=== PATIENT | female | born 1940 | race African-American/Black ===

== ENCOUNTER 2022-03-20 02:07 | Day surgery (SDC) | payer MEDICARE, SELFPAY ==
[2022-02-14 12:10] VITALS: BMI 29.5
--- NOTE | 2022-03-20 07:59 | P.PNAN_ITS ---
Anes - Initial Pre Proc Eval Procedure: Operation Date: 03/20/22 09:00 Proposed Procedures p Colonoscopy - Gabe Duenas MD Date/Time: 03/20/22 07:59 Surgeon: Gabe Duenas MD Pre Op Diagnosis: change in bowel habits Patient Data Age: 81 Gender: F Height: 1.71 m Weight: 87 kg Allergies Allergy/AdvReac Type Severity Reaction Status Date / Time No Known Allergies Allergy Unverified 03/20/22 08:14 Home Medications Medication Instructions Recorded Confirmed Type atorvastatin 80 mg tablet 80 mg PO DAILY 11/08/21 02/14/22 History citalopram 20 mg tablet 20 mg PO DAILY 11/08/21 02/14/22 History clopidogrel 75 mg tablet 75 mg PO DAILY 11/08/21 03/20/22 History glipizide 10 mg tablet 10 mg PO BID 11/08/21 02/14/22 History metformin 1,000 mg tablet 1,000 mg PO BID 11/08/21 02/14/22 History metoprolol succinate 100 mg 100 mg PO DAILY 11/08/21 02/14/22 History capsule sprinkle, ext. release 24 hr sitagliptin 100 mg tablet (Januvia) 100 mg PO DAILY 11/08/21 02/14/22 History aspirin 325 mg tablet 325 mg PO DAILY 02/14/22 02/14/22 History diclofenac sodium 75 mg 75 mg PO DAILY 02/14/22 02/14/22 History tablet,delayed release olmesartan 40 mg tablet 40 mg PO DAILY 02/14/22 02/14/22 History Patient hx anesthesia problems: none Family hx anesthesia problems: none Results Review: All pre-operative results and documents have been reviewed as part of the pre- operative evaluation. [facility] Past Medical History Medical History (Updated 03/20/22 @ 08:01 by Arley Nunez MD) Arthritis Depression Diabetes HTN (hypertension) Hyperlipidemia Overweight (BMI 25.0-29.9) Peripheral neuropathy Stroke left side weakness Social History Social History (Updated 11/08/21 @ 09:50 by Gretta Swanson CMA) Smoking status: Never smoker Alcohol intake: former Substance use: never Substance use type: does not use Spiritual care concerns: No Anes - Eval Final PreProcedure Day of Procedure 03/20/22 07:59 Patient weight: overweight Heart: regular rate and rhythm Lungs: clear to auscultation and normal air movement Airway: Mallampati scale class II Neurological: alert and oriented Last oral intake: >/= 8 hours ASA classification: III Emergent: no Anesthetic plan: proceed Anesthesia type and monitoring: general GIVS Results Review: All pre-operative results and documents have been reviewed as part of the pre- operative evaluation. Informed Consent: The patient's anesthetic plan and its attendant risks and benefits were discussed with the patient/family/POA. Questions were solicited and answers provided to the satisfaction of the patient/family/POA.
[2022-03-20 08:17] VITALS: BP 161/78; PULSE 72; RESP 18; TEMP 36.4; O2SAT 100
[2022-03-20 08:17] LABS: Glucose Point of Care 92 mg/dl (65-105)
[2022-03-20] MEDS: LACTATED RINGERS 1,000 ML 150 ML IV CONT (08:28)
--- NOTE | 2022-03-20 08:47 | PM.HPGS ---
History of Present Illness History of Present Illness Consent: Risks, benefits, and alternatives have been discussed and questions answered. Patient agrees to proceed with procedure. Chief complaint: change in bowel habits Narrative: Samantha Arellano is a 81 year old female with stool incontinence, fiber did not help. Last colonoscopy 2017. Review of Systems Constitutional: Constitutional: Denies headache(s) and Denies weakness Eyes: Eyes: Denies blurry vision ENT: Reports Normal hearing present, Denies headache(s) and Denies neck pain Cardiovascular: Cardiovascular: Denies chest pain and Denies dyspnea Respiratory: Respiratory: Denies dyspnea Gastrointestinal: Gastrointestinal: Reports no additional gastrointestinal complaints Genitourinary: Genitourinary: Denies dysuria Musculoskeletal: Musculoskeletal: Denies neck pain Integumentary/Breasts: Skin/Breast: Denies dry skin Neurologic: Reports Normal hearing present, Denies headache(s) and Denies weakness Psychiatric: Psychiatric: Denies anxiety Endocrine: Endocrine: Denies change in body appearance Hematologic/Lymphatic: Hematologic/Lymphatic: Denies easy bleeding Allergic/Immunologic: Allergic/Immunologic: Denies urticaria PMF Past Medical History Medical History (Updated 03/20/22 @ 08:48 by Gabe Duenas MD) Arthritis Depression Diabetes HTN (hypertension) Hyperlipidemia Overweight (BMI 25.0-29.9) Peripheral neuropathy Stool incontinence Stroke left side weakness Social History Social History (Updated 11/08/21 @ 09:50 by Gretta Swanson CMA) Smoking status: Never smoker Alcohol intake: former Substance use: never Substance use type: does not use Spiritual care concerns: No Meds Home Medications and Allergies Home Medications Medication Instructions Recorded Confirmed Type atorvastatin 80 mg tablet 80 mg PO DAILY 11/08/21 02/14/22 History citalopram 20 mg tablet 20 mg PO DAILY 11/08/21 02/14/22 History clopidogrel 75 mg tablet 75 mg PO DAILY 11/08/21 03/20/22 History glipizide 10 mg tablet 10 mg PO BID 11/08/21 02/14/22 History metformin 1,000 mg tablet 1,000 mg PO BID 11/08/21 02/14/22 History metoprolol succinate 100 mg 100 mg PO DAILY 11/08/21 02/14/22 History capsule sprinkle, ext. release 24 hr sitagliptin 100 mg tablet (Januvia) 100 mg PO DAILY 11/08/21 02/14/22 History aspirin 325 mg tablet 325 mg PO DAILY 02/14/22 02/14/22 History diclofenac sodium 75 mg 75 mg PO DAILY 02/14/22 02/14/22 History tablet,delayed release olmesartan 40 mg tablet 40 mg PO DAILY 02/14/22 02/14/22 History Allergies Allergy/AdvReac Type Severity Reaction Status Date / Time No Known Allergies Allergy Unverified 03/20/22 08:14 Vital Signs Vital Signs - 24 hr 03/20/22 08:17 Temperature 97.5 F L Pulse Rate 72 Respiratory Rate 18 Blood Pressure 161/78 H Pulse Oximetry 100 Oxygen Delivery Room Air Exam Const: General: comfortable and no acute distress HENMT: General nose exam: Normal nares present Eyes: General: appearance normal, both eyes and all related structures Neck: Neck: no JVD Resp: Auscultation: clear to auscultation bilaterally Cardio: Rate: regular rate Rhythm: regular rhythm GI: Inspection: non-distended GI Palp: Yes Soft to palpation Skin: General skin exam: normal color Neuro: General: gait normal Speech: normal speech Extrem: General: normal to inspection Psych: Mental Status: mental status grossly normal Assessment and Plan Assessment and plan (1) Stool incontinence: Code(s): R15.9 - Full incontinence of feces Status: Acute Assessment and Plan: will proceed with colonoscopy, consider random colon bx
[2022-03-20 09:08] VITALS: BP 145/59; PULSE 61; RESP 20; O2SAT 100
[2022-03-20 09:18] VITALS: BP 152/75; PULSE 58; RESP 18; O2SAT 100
[2022-03-20 09:28] VITALS: BP 136/107; PULSE 58; RESP 18; O2SAT 100
== END 2022-03-20 09:36 | disposition home or self-care (01) ==
PROVIDERS: PCP Internal Medicine; Visit Provider Internal Medicine Gastroenterology
PROC: 0DJD8ZZ Inspection of Lower Intestinal Tract, Via Natural or Artificial Opening Endoscopic (ICD-10-PCS; CPT 45378; principal; 2022-03-20 09:00)
DX: Z12.11 Encounter for screening for malignant neoplasm of colon (principal); R15.9 Full incontinence of feces; K57.30 Diverticulosis of large intestine without perforation or abscess without bleeding; I10 Essential (primary) hypertension; E78.5 Hyperlipidemia, unspecified; F32.A Depression, unspecified; I69.354 Hemiplegia and hemiparesis following cerebral infarction affecting left non-dominant side; E11.42 Type 2 diabetes mellitus with diabetic polyneuropathy; M19.90 Unspecified osteoarthritis, unspecified site; Z79.02 Long term (current) use of antithrombotics/antiplatelets; Z79.82 Long term (current) use of aspirin; Z79.84 Long term (current) use of oral hypoglycemic drugs
CPT/HCPCS: 45380; 82948; 88305; J2704; J7120